=== PATIENT | male | born 1950 | race African-American/Black ===

== ENCOUNTER 2016-09-07 16:17 | Emergency (ER) | payer MEDICARE ==
[~2016-09-07] VITALS: Ht 185.4 cm; Wt 98.0 kg
[~2016-09-07 16:17] MED LIST: DIOV320T PO; LORTA5 PO; TAMS0.4C67 PO
[2016-09-07 16:20] VITALS: BP 180/85; PULSE 97; RESP 16; TEMP 98.1; O2SAT 94
[2016-09-07] MEDS ORDERED: SODIUM CHLORIDE 0.9% FLUSH 5 ML FLUSH IVF PRN (17:00)
[2016-09-07] MEDS ORDERED: ONDANSETRON HCL 4 MG/2 ML VIAL IVP ONE (17:00)
[2016-09-07] MEDS ORDERED: MECLIZINE HCL 25 MG TAB PO ONE ×2 (17:00→23:15)
--- NOTE | 2016-09-07 17:05 | PD ---
HPI Chief Complaint: Dizziness Time Seen by Provider: 16:53 Travel History International Travel<30 days: No Contact w/Intl Traveler<30days: No Traveled to known affect area: No History of Present Illness HPI 66-year-old male with history of hypertension, prostate cancer status post treatment with last chemotherapy several weeks ago, presents to the ER today because he states that this morning because he noticed that he has been dizzy this morning when he woke up, states he felt unsteady, and has been nauseous and vomiting. He states this seems to be worse when he lays on his right side. He denies any fevers, diarrhea, numbness or weakness, or any other symptoms. Modifying Factors: None Associated Signs & Symptoms: Dizziness, nausea, vomiting Risk Factors: None PFSH Past Medical History Cancer: Yes (prostate) Chemotherapy: Yes (08/18/16) Hypertension: Yes Past Surgical History Surgical History: No Previous Surgery Oral Surgery: Yes (wisdom teeth) Social History Alcohol Use: Yes (rare) Tobacco Use: No Substance Use: No Allergies-Medications (Allergen,Severity, Reaction): Coded Allergies: No Known Allergies (Verified , 09/07/16) Reported Meds & Prescriptions Reported Meds & Active Scripts Active Reported Prednisone 5 Mg Tab 5 Mg PO DAILY Flomax (Tamsulosin HCl) 0.4 Mg Cap 0.4 Mg PO DAILY Valsartan 320 Mg Tab 320 Mg PO DAILY Amlodipine (Amlodipine Besylate) 10 Mg Tab 10 Mg PO DAILY Klor-Con 10 (Potassium Chloride) 10 Meq Tab 10 Meq PO DAILY Vitamin D-400 (Cholecalciferol) 400 Unit Tab 400 Units PO DAILY Prolia Inj (Denosumab) 60 Mg/Ml Inj Unknown Dose SQ Q180D Xgeva Inj (Denosumab) 120 Mg/1.7 Ml Inj Unknown Dose SQ Q28D Review of Systems Except as stated in HPI: all other systems reviewed are Neg Physical Exam Narrative GENERAL: Well-nourished, well-developed elderly white male patient in no acute distress. Awake and oriented 3. SKIN: Warm and dry. HEAD: Normocephalic. EYES: No scleral icterus. No injection or drainage. Pupils are equal, round, reactive to light bilaterally. Extraocular movements are intact. Rightward nystagmus. NECK: Supple, trachea midline. CARDIOVASCULAR: Regular rate and rhythm without murmurs, gallops, or rubs. RESPIRATORY: Breath sounds equal bilaterally. No accessory muscle use. GASTROINTESTINAL: Abdomen soft, non-tender, nondistended. MUSCULOSKELETAL: No cyanosis, or edema. BACK: Nontender without obvious deformity. No CVA tenderness. NEUROLOGICAL: Awake and alert. Cranial nerves II through XII intact. Motor and sensory grossly within normal limits. Five out of 5 muscle strength in all muscle groups. Normal speech. Normal Romberg. Data Data Last Documented VS Vital Signs Date Time Temp Pulse Resp B/P Pulse Ox O2 Delivery O2 Flow Rate FiO2 09/07/16 19:18 87 20 163/89 96 09/07/16 18:07 Room Air 09/07/16 16:20 98.1 Orders Electrocardiogram (09/07/16 16:53) Complete Blood Count With Diff (09/07/16 16:53) Comprehensive Metabolic Panel (09/07/16 16:53) Magnesium (Mg) (09/07/16 16:53) Ct Brain W/O Iv Contrast(Rout) (09/07/16 16:53) Ecg Monitoring (09/07/16 16:53) Iv Access Insert/Monitor (09/07/16 16:53) Oximetry (09/07/16 16:53) Meclizine (Antivert) (09/07/16 17:00) Ondansetron Inj (Zofran Inj) (09/07/16 17:00) Sodium Chloride 0.9% Flush (Ns Flush) (09/07/16 17:00) Mri Brain W&W/O Contrast (09/07/16 20:05) Gadodiamide Pf Inj (Omniscan Pf Inj) (09/07/16 20:47) Labs Laboratory Tests Test 09/07/16 17:10 White Blood Count 13.2 TH/MM3 Red Blood Count 4.38 MIL/MM3 Hemoglobin 11.4 GM/DL Hematocrit 36.3 % Mean Corpuscular Volume 82.9 FL Mean Corpuscular Hemoglobin 26.1 PG Mean Corpuscular Hemoglobin 31.5 % Concent Red Cell Distribution Width 16.7 % Platelet Count 202 TH/MM3 Mean Platelet Volume 8.3 FL Neutrophils (%) (Auto) 58.7 % Lymphocytes (%) (Auto) 25.4 % Monocytes (%) (Auto) 14.7 % Eosinophils (%) (Auto) 0.6 % Basophils (%) (Auto) 0.6 % Neutrophils # (Auto) 7.7 TH/MM3 Lymphocytes # (Auto) 3.4 TH/MM3 Monocytes # (Auto) 1.9 TH/MM3 Eosinophils # (Auto) 0.1 TH/MM3 Basophils # (Auto) 0.1 TH/MM3 CBC Comment AUTO DIFF Differential Comment AUTO DIFF CONFIRMED Platelet Estimate NORMAL Platelet Morphology Comment NORMAL Red Cell Morphology Comment NORMAL Sodium Level 142 MEQ/L Potassium Level 4.0 MEQ/L Chloride Level 109 MEQ/L Carbon Dioxide Level 24.9 MEQ/L Anion Gap 8 MEQ/L Blood Urea Nitrogen 17 MG/DL Creatinine 1.44 MG/DL Estimat Glomerular Filtration 59 ML/MIN Rate Random Glucose 110 MG/DL Calcium Level 9.8 MG/DL Magnesium Level 2.6 MG/DL Total Bilirubin 0.2 MG/DL Aspartate Amino Transf 27 U/L (AST/SGOT) Alanine Aminotransferase 31 U/L (ALT/SGPT) Alkaline Phosphatase 56 U/L Total Protein 7.8 GM/DL Albumin 3.9 GM/DL MDM Medical Decision Making Medical Screen Exam Complete: Yes Emergency Medical Condition: Yes Medical Record Reviewed: Yes Interpretation(s) Laboratory Tests Test 09/07/16 17:10 White Blood Count 13.2 TH/MM3 (4.0-11.0) Red Blood Count 4.38 MIL/MM3 (4.50-5.90) Hemoglobin 11.4 GM/DL (13.0-17.0) Hematocrit 36.3 % (39.0-51.0) Mean Corpuscular Hemoglobin 26.1 PG (27.0-34.0) Mean Corpuscular Hemoglobin 31.5 % Concent (32.0-36.0) Monocytes (%) (Auto) 14.7 % (0.0-8.0) Monocytes # (Auto) 1.9 TH/MM3 (0-0.9) Chloride Level 109 MEQ/L (98-107) Creatinine 1.44 MG/DL (0.60-1.30) Estimat Glomerular Filtration 59 ML/MIN (>89) Rate Random Glucose 110 MG/DL (74-106) Magnesium Level 2.6 MG/DL (1.5-2.5) Last [address] 09/07/16 0563 Signed Impressions: Service Date/Time: Wednesday, September 07, 2016 17:27 - CONCLUSION: Focal hypodensity in the right parasagittal occipital lobe involving both lambert matter and white matter. There is also diffuse hypodensity throughout the supratentorial white matter suggesting diffuse ischemic change. There is, however, no significant atrophy. The abnormality in the right occipital region could represent an old or acute infarction or a mass; recommend further characterization using MRI with and without contrast. Geraldo Pinto MD Differential Diagnosis Dizziness, nausea and vomitingdehydration versus metabolic issues versus orthostasis versus acute intracranial processes versus CVA versus benign positional vertigo Narrative Course Vital signs are stable in the ER. EKG did not show any signs of acute ST-T changes or dysrhythmias. Lab work did not indicate significant metabolic issues. Patient was given meclizine and Zofran in the ER. On reevaluation at 8 :30 PM, he is feeling improved. He is able to stand unassisted without issues. Can do Romberg testing without issues. However, the CAT scan shows a questionable acute CVA versus old CVA versus tumor in the right occipital region. At this point, radiologist have recommended MRI for further characterization. I have offered to admit the patient but he is declining. At this point MRI has been ordered for further characterization. Physician Communication Physician Communication Case is signed out to LONDON Tiwari awaiting MRI results. Disposition based on MRI results. Diagnosis Primary Impression: Vertigo Condition: Stable Sanjana Hidalgo MD Sep 07, 2016 17:04
[2016-09-07] MEDS ORDERED: PRED5TAB PO (17:30)
[2016-09-07] MEDS ORDERED: AMLO10TA2 PO (17:30)
[2016-09-07] MEDS ORDERED: DENO120P SQ (17:30)
[2016-09-07] MEDS ORDERED: TAMS5CAP PO (17:30)
[2016-09-07] MEDS ORDERED: VITATAB56 PO (17:30)
[2016-09-07] MEDS ORDERED: POTA-243 PO (17:30)
[2016-09-07] MEDS ORDERED: DENO60P SQ (17:30)
[2016-09-07] MEDS ORDERED: VALS1TAB70 PO (17:30)
[2016-09-07 17:34] LABS: AUTOMATED NEUTROPHIL # 7.7 TH/MM3 (1.8-7.7); BASOPHIL # 0.1 TH/MM3 (0-0.2); BASOPHIL % 0.6 % (0.0-2.0); EOSINOPHIL # 0.1 TH/MM3 (0-0.4); EOSINOPHIL % 0.6 % (0.0-4.0); HEMATOCRIT 36.3 % (39.0-51.0); LYMPH % 25.4 % (9.0-44.0); LYMPHOCYTE # 3.4 TH/MM3 (1.0-4.8); MEAN CELL VOLUME 82.9 FL (80.0-100.0); MEAN CORPUSCULAR HEMOGLOBIN 26.1 PG (27.0-34.0); MEAN CORPUSCULAR HGB CONC 31.5 % (32.0-36.0); MONO % 14.7 % (0.0-8.0); NEUT % 58.7 % (16.0-70.0); PLATELET COUNT 202 TH/MM3 (150-450); RED BLOOD COUNT 4.38 MIL/MM3 (4.50-5.90); RED CELL DISTRIBUTION WIDTH 16.7 % (11.6-17.2); WHITE BLOOD COUNT 13.2 TH/MM3 (4.0-11.0)
[2016-09-07 17:35] LABS: HEMO FLAGS AUTO DIFF
[2016-09-07 17:56] LABS: PLATELET ESTIMATE SMEAR NORMAL (NORMAL); PLATELET MORPHOLOGY NORMAL (NORMAL); SCAN/DIFF AUTO DIFF CONFIRMED
[2016-09-07 17:59] LABS: ALKALINE PHOSPHATASE 56 U/L (45-117); ALT (GPT) 31 U/L (12-78); ANION GAP 8 MEQ/L (5-15); AST (GOT) 27 U/L (15-37); BICARBONATE 24.9 MEQ/L (21.0-32.0); BLOOD UREA NITROGEN 17 MG/DL (7-18); CHLORIDE 109 MEQ/L (98-107); GLOMERULAR FILTRATION RATE 59 ML/MIN (>89); MAGNESIUM 2.6 MG/DL (1.5-2.5); SODIUM (NA) 142 MEQ/L (136-145); TOTAL BILIRUBIN ADULT 0.2 MG/DL (0.2-1.0)
[2016-09-07 18:07] VITALS: BP 151/79; PULSE 85; RESP 18; O2SAT 94
[2016-09-07 19:18] VITALS: BP 163/89; PULSE 87; RESP 20; O2SAT 96
--- NOTE | 2016-09-07 19:54 | RADRPT ---
EXAM DATE/TIME: 09/07/2016 17:27 [facility] COMPARISON: No previous studies available for comparison. INDICATIONS : Dizziness. RADIATION DOSE: 56.35 CTDIvol (mGy) MEDICAL HISTORY : Hypertension. Carcinoma, prostate. SURGICAL HISTORY : None. ENCOUNTER: Initial ACUITY: 1 day PAIN SCALE: 0/10 LOCATION: cranial TECHNIQUE: Multiple contiguous axial images were obtained of the head. Using automated exposure control and adj ustment of the mA and/or kV according to patient size, radiation dose was kept as low as reasonably a chievable to obtain optimal diagnostic quality images. FINDINGS: CEREBRUM: The ventricles are symmetric in appearance and normal in size. There is decreased attenuation throug hout the supratentorial white matter. There is a triangular-shaped area of hypodensity in the right mid convexity parasagittal right occipital lobe involving both lambert matter and white matter measuring 2.0 x 1.4 cm. No focal hyperdensities or calcifications seen. No extra-axial fluid or blood. POSTERIOR FOSSA: The cerebellum and brainstem are intact. The 4th ventricle is midline. The cerebellopontine angle i s unremarkable. EXTRACRANIAL: The visualized portion of the orbits is intact. SKULL: The calvaria is intact. No evidence of skull fracture. CONCLUSION: Focal hypodensity in the right parasagittal occipital lobe involving both lambert matter and white matte r. There is also diffuse hypodensity throughout the supratentorial white matter suggesting diffuse i schemic change. There is, however, no significant atrophy. The abnormality in the right occipital r egion could represent an old or acute infarction or a mass; recommend further characterization using MRI with and without contrast. Geraldo Pinto MD on September 07, 2016 at 19:50 Board Certified Radiologist. This report was verified electronically.
[2016-09-07] MEDS ORDERED: GADODIAMIDE PF 287 MG/ML 20 ML VIAL (for RAD MRI) IV ONE (20:47)
--- NOTE | 2016-09-07 21:06 | EKG ---
Date Performed: 09/07/2016 Time Performed: 17:12:08 PTAGE: 66 years EKG: Sinus rhythm BORDERLINE LEFT AXIS DEVIATION NONSPECIFIC T-WAVE ABNORMALITY BORDERLINE ECG NO PREVIOUS TRACING DOCTOR: Fermín Chacon Interpretating Date/Time 09/07/2016 21:05:22
[2016-09-07 21:08] VITALS: BP 160/74; PULSE 93; RESP 20; O2SAT 95
--- NOTE | 2016-09-07 21:41 | RADRPT ---
EXAM DATE/TIME: 09/07/2016 20:36 [facility] COMPARISON: CT BRAIN W/O CONTRAST, September 07, 2016, 17:27. INDICATIONS : Dizziness. Abnormal CT. CONTRAST: 20 cc Omniscan (gadodiamide) IV MEDICAL HISTORY : Carcinoma, prostate. Hypertension. SURGICAL HISTORY : None. ENCOUNTER: Initial ACUITY: 1 day PAIN SCORE: 0/10 LOCATION: cranial TECHNIQUE: Multiplanar, multisequence MRI of the brain was performed both prior to and following the administrat ion of paramagnetic contrast. FINDINGS: The examination is performed to characterize is regular shaped area of hypodensity seen in the right occipital lobe. The MRI demonstrates a similar size signal abnormality characterized by T2 prolongat ion and T1 prolongation. There is no restricted diffusion. Signal characteristics are similar to di ffuse white matter ischemic change in the periventricular region. No evidence of mass effect no evid ence of blood products. No extra-axial fluid collections. Posterior fossa structures are grossly in tact. Due to gland is normal size. The cerebellar tonsils are in orthotopic position. A postcontra st study, no abnormal areas of blood brain barrier breakdown or abnormal contrast-enhancement seen. CONCLUSION: Diffuse ischemic change in the supratentorial brain. The lesion seen in the right occipital lobe on CT scan represents an old infarction. Geraldo Pinto MD on September 07, 2016 at 21:37 Board Certified Radiologist. This report was verified electronically.
[2016-09-07] MEDS ORDERED: MECL1TAB42 PO (22:44)
[2016-09-07] MEDS ORDERED: PROM25TA5 PO (22:44)
--- NOTE | 2016-09-07 22:47 | PD ---
Physical Exam Date Seen by Provider: Sep 07, 2016 Time Seen by Provider: 22:45 Data Data Last Documented VS Vital Signs Date Time Temp Pulse Resp B/P Pulse Ox O2 Delivery O2 Flow Rate FiO2 09/07/16 21:08 93 20 160/74 95 09/07/16 18:07 Room Air 09/07/16 16:20 98.1 Orders Electrocardiogram (09/07/16 16:53) Complete Blood Count With Diff (09/07/16 16:53) Comprehensive Metabolic Panel (09/07/16 16:53) Magnesium (Mg) (09/07/16 16:53) Ct Brain W/O Iv Contrast(Rout) (09/07/16 16:53) Ecg Monitoring (09/07/16 16:53) Iv Access Insert/Monitor (09/07/16 16:53) Oximetry (09/07/16 16:53) Meclizine (Antivert) (09/07/16 17:00) Ondansetron Inj (Zofran Inj) (09/07/16 17:00) Sodium Chloride 0.9% Flush (Ns Flush) (09/07/16 17:00) Mri Brain W&W/O Contrast (09/07/16 20:05) Gadodiamide Pf Inj (Omniscan Pf Inj) (09/07/16 20:47) Labs Laboratory Tests Test 09/07/16 17:10 White Blood Count 13.2 TH/MM3 Red Blood Count 4.38 MIL/MM3 Hemoglobin 11.4 GM/DL Hematocrit 36.3 % Mean Corpuscular Volume 82.9 FL Mean Corpuscular Hemoglobin 26.1 PG Mean Corpuscular Hemoglobin 31.5 % Concent Red Cell Distribution Width 16.7 % Platelet Count 202 TH/MM3 Mean Platelet Volume 8.3 FL Neutrophils (%) (Auto) 58.7 % Lymphocytes (%) (Auto) 25.4 % Monocytes (%) (Auto) 14.7 % Eosinophils (%) (Auto) 0.6 % Basophils (%) (Auto) 0.6 % Neutrophils # (Auto) 7.7 TH/MM3 Lymphocytes # (Auto) 3.4 TH/MM3 Monocytes # (Auto) 1.9 TH/MM3 Eosinophils # (Auto) 0.1 TH/MM3 Basophils # (Auto) 0.1 TH/MM3 CBC Comment AUTO DIFF Differential Comment AUTO DIFF CONFIRMED Platelet Estimate NORMAL Platelet Morphology Comment NORMAL Red Cell Morphology Comment NORMAL Sodium Level 142 MEQ/L Potassium Level 4.0 MEQ/L Chloride Level 109 MEQ/L Carbon Dioxide Level 24.9 MEQ/L Anion Gap 8 MEQ/L Blood Urea Nitrogen 17 MG/DL Creatinine 1.44 MG/DL Estimat Glomerular Filtration 59 ML/MIN Rate Random Glucose 110 MG/DL Calcium Level 9.8 MG/DL Magnesium Level 2.6 MG/DL Total Bilirubin 0.2 MG/DL Aspartate Amino Transf 27 U/L (AST/SGOT) Alanine Aminotransferase 31 U/L (ALT/SGPT) Alkaline Phosphatase 56 U/L Total Protein 7.8 GM/DL Albumin 3.9 GM/DL [facility] Medical Record Reviewed: Yes Supervised Visit with MACHO: Yes Interpretation(s) CBC & BMP Diagram 09/07/16 17:10 Last 24 hours Impressions Brain MRI 09/07/162004 Signed Impressions: Service Date/Time: Wednesday, September 07, 2016 20:36 - CONCLUSION: Diffuse ischemic change in the supratentorial brain. The lesion seen in the right occipital lobe on CT scan represents an old infarction. Geraldo Pinto MD Head CT 09/07/16 [id number] Signed Impressions: Service Date/Time: Wednesday, September 07, 2016 17:27 - CONCLUSION: Focal hypodensity in the right parasagittal occipital lobe involving both lambert matter and white matter. There is also diffuse hypodensity throughout the supratentorial white matter suggesting diffuse ischemic change. There is, however, no significant atrophy. The abnormality in the right occipital region could represent an old or acute infarction or a mass; recommend further characterization using MRI with and without contrast. Geraldo Pinto MD Differential Diagnosis Differential diagnoses: Electrolyte abnormality, CVA, TIA, posterior circulation ischemia/infarct, vertigo Narrative Course Patient has been given Phenergan and Antivert Sanjana Sarmiento with improvement of his symptoms. His initial CAT scan showed an abnormality. This is confirmed as an old infarct by MRI. There is no acute lesion or ischemic infarct noted. This is vertigo Diagnosis Primary Impression: Vertigo Patient Instructions: General Instructions Additional Instruction: Rest. Antivert. Phenergan. Moves slowly. Follow-up with your doctor in the next 1-2 days. Return to the ER if any problems. Med/Other Pt SpecificInfo: Prescription(s) given Scripts Promethazine (Phenergan)25 Mg Tab25 Mg PO Q6H PRN (Nausea/Vomiting) #20 TAB Ref 0 Prov:Sanjana Hidalgo MD 09/07/16 Meclizine HCl (Meclizine 25)25 Mg Tab25 Mg PO Q6HR PRN (DIZZINESS) #30 Prov:Sanjana Hidalgo MD 09/07/16 Disposition: 01 DISCHARGE HOME Condition: Stable Jaswant Morelos Sep 07, 2016 22:47
[2016-09-07 23:19] VITALS: BP 160/74
== END 2016-09-07 23:20 | disposition home or self-care (01) ==
LOC: NEPA 16:17
DX: R42 Dizziness and giddiness (principal); R11.2 Nausea with vomiting, unspecified; R26.81 Unsteadiness on feet; R94.31 Abnormal electrocardiogram [ECG] [EKG]; I10 Essential (primary) hypertension; Z85.46 Personal history of malignant neoplasm of prostate
CPT/HCPCS: 70450; 70553; 80053; 83735; 85025; 93005; 96374; 99284; A9579; J2405

== ENCOUNTER 2016-11-25 00:21 | Emergency (ER) | payer MEDICARE ==
[~2016-11-25] VITALS: Ht 185.4 cm; Wt 98.0 kg
[~2016-11-25 00:21] MED LIST changes: +AMLO10TA2 PO; +DENO120P SQ; +DENO60P SQ; -DIOV320T PO; -LORTA5 PO; +MECL1TAB42 PO; +POTA-243 PO; +PRED5TAB PO; +PROM25TA5 PO; -TAMS0.4C67 PO; +TAMS5CAP PO; +VALS1TAB70 PO; +VITATAB56 PO
[2016-11-25 00:25] VITALS: BP 178/83; PULSE 141; RESP 18; TEMP 103.1; O2SAT 96
== END 2016-11-25 00:42 | disposition left against medical advice (07) ==
LOC: NED 00:21
DX: R50.9 Fever, unspecified (principal); Z53.21 Procedure and treatment not carried out due to patient leaving prior to being seen by health care provider
CPT/HCPCS: 99281